=== PATIENT | male | born 1980 | race Caucasian/White ===

== ENCOUNTER 2022-08-15 19:32 | Emergency (ER) | payer OTHER, SELFPAY ==
--- NOTE | ~2022-08-15 | XR_ITS ---
X-RAY LEFT ANKLE X-RAY LEFT FOOT CLINICAL HISTORY: Fall. COMPARISON: No relevant prior studies are available for comparison. TECHNIQUE: 2 views of the left ankle and 3 views of the left foot. FINDINGS: No acute fractures or subluxation. No significant degenerative changes. No erosions. No abnormal soft tissue calcifications nor unexpected radiopaque foreign bodies. XR/XR ankle LT min 3V IMPRESSION: No acute fractures or subluxation.
--- NOTE | ~2022-08-15 | XR_ITS ---
X-RAY LEFT ANKLE X-RAY LEFT FOOT CLINICAL HISTORY: Fall. COMPARISON: No relevant prior studies are available for comparison. TECHNIQUE: 2 views of the left ankle and 3 views of the left foot. FINDINGS: No acute fractures or subluxation. No significant degenerative changes. No erosions. No abnormal soft tissue calcifications nor unexpected radiopaque foreign bodies. XR/XR foot LT min 3V IMPRESSION: No acute fractures or subluxation.
[2022-08-15 19:36] VITALS: BP 143/98; PULSE 128; RESP 18; TEMP 36.7; O2SAT 94; BMI 29.3
--- NOTE | 2022-08-15 19:37 | ED_ITS ---
HPI - General Adult General Chief complaint: General Medical Stated complaint: broken foot, depressed, chest pain Related Data Home Medications Medication Instructions Recorded Confirmed buprenorphine 300 mg/1.5 mL 300 mg subcut Q30D 08/17/22 08/17/22 solution,exten.rel.subcutaneous syringe (Sublocade) clonazepam 1 mg tablet 1 mg PO BID 08/17/22 08/17/22 escitalopram oxalate 10 mg tablet 10 mg PO DAILY 08/17/22 08/17/22 gabapentin 800 mg tablet 800 mg PO TID 08/17/22 08/17/22 Allergies Allergy/AdvReac Type Severity Reaction Status Date / Time sulfamethoxazole Allergy Unknown HIVES Verified 08/17/22 21:30 [From BACTRIM] trimethoprim [From BACTRIM] Allergy Unknown HIVES Verified 08/17/22 21:30 [facility] Social History Social History Smoked in Last 30 Days: No Use of substances other than those prescribed or required for medical reasons: No Substance Use Type: Marijuana Advance Directives: No Advance Directives Information Provided: No Physical Exam ED Vital Signs: BMI result Body Mass Index 29.3 Course Course Course Narrative: RME - 41 yo male with history of depression, anxiety, alcohol abuse/dependence who was sober for the last 3 years presents to the ER for evaluation of left foot and ankle pain after a fall 3 weeks ago. Rodrigo reports he relapsed, drinking heavy amounts of alcohol to do with the pain. Significant increase in the last 1 week. He has been reporting palpitations and ?issues with his heart?. He has not been eating and only drinking alcohol. No male beds a vailable when they tried to get him into a detox. They steady need to be medically cleared. Tachycardic to the 130s and triage, intoxicated. Plan x-ray of the left foot and ankle, EKG, lab workup for medical clearance. Reevaluation(s) Reevaluation #1: patient eloped prior to full assessment Medical Decision Making Lab Data 08/15/22 20:00 08/15/22 20:00 Labs: Lab Results 08/15/22 08/15/22 08/15/22 Range/Units 19:55 20:00 20:00 WBC 14.0 H (4.8-10.8) X10*3/uL RBC 5.33 (4.60-5.80) X10*6/uL Hgb 15.6 (14.0-18.0) g/dl Hct 45.4 (42.0-52.0) % MCV 85.2 (80.0-98.0) fL MCH 29.3 (27.0-33.0) pg MCHC 34.4 (31.0-36.0) g/dl RDW 14.2 (11.0-16.0) % Plt Count 143 L (160-400) X10*3/uL MPV 9.8 (9.4-12.4) fL Immature Gran % (Auto) 0.4 (0.0-0.4) % Neut % (Auto) 91.6 H (45-73) % Lymph % (Auto) 4.9 L (20-40) % [place] % (Auto) 3.0 (2-11) % Eos % (Auto) 0.0 (0-4) % Baso % (Auto) 0.1 (0-2) % Lymph # (Auto) 0.7 L (1.2-4.9) X10*3/uL [place] # (Auto) 0.4 (0.1-1.2) X10*3/uL Eos # (Auto) 0.0 (0.0-0.4) X10*3/uL Baso # (Auto) 0.0 (0.0-0.2) X10*3/uL Abs Immat Gran (auto) 0.05 H (0.00-0.03) X10*3/uL Absolute Neuts (auto) 12.8 H (2.0-8.3) x10*3/uL Absolute Nucleated RBC 0.000 (0.0-0.012) X10*3/uL Nucleated RBC % (auto) 0.0 (0.0-0.2) /100WBC Sodium 140 (135-145) mmol/L Potassium 4.0 (3.3-5.1) mmol/L Chloride 98 (96-108) mmol/L Carbon Dioxide 26 (22-29) mmol/L Anion Gap 20 (12-20) BUN 7 L (9-16) mg/dL Creatinine 0.81 (0.5-1.4) mg/dL Estim Creat Clear Calc 124.9 Estimated GFR > 60 Random Glucose 198 H (60-115) mg/dL Calcium 8.1 L (8.4-10.2) mg/dL Magnesium 2.2 (1.6-2.6) mg/dL Total Bilirubin 0.9 (0.0-1.0) mg/dL Direct Bilirubin 0.3 (0.0-0.5) mg/dL AST 143 H (5-37) U/L ALT 62 H (0-40) U/L Alkaline Phosphatase 111 (39-117) U/L Total Protein 6.9 (6.5-8.0) g/dL Albumin 3.8 (3.5-5.0) g/dL Ethyl Alcohol mg/dL COVID-19 (ROSSI) Negative (Negative) COVID-19 Clin Com See Note 08/15/22 Range/Units 20:00 WBC (4.8-10.8) X10*3/uL RBC (4.60-5.80) X10*6/uL Hgb (14.0-18.0) g/dl Hct (42.0-52.0) % MCV (80.0-98.0) fL MCH (27.0-33.0) pg MCHC (31.0-36.0) g/dl RDW (11.0-16.0) % Plt Count (160-400) X10*3/uL MPV (9.4-12.4) fL Immature Gran % (Auto) (0.0-0.4) % Neut % (Auto) (45-73) % Lymph % (Auto) (20-40) % Cors[place] % (Auto) (2-11) % Eos % (Auto) (0-4) % Baso % (Auto) (0-2) % Lymph # (Auto) (1.2-4.9) X10*3/uL [place] # (Auto) (0.1-1.2) X10*3/uL Eos # (Auto) (0.0-0.4) X10*3/uL Baso # (Auto) (0.0-0.2) X10*3/uL Abs Immat Gran (auto) (0.00-0.03) X10*3/uL Absolute Neuts (auto) (2.0-8.3) x10*3/uL Absolute Nucleated RBC (0.0-0.012) X10*3/uL Nucleated RBC % (auto) (0.0-0.2) /100WBC Sodium (135-145) mmol/L Potassium (3.3-5.1) mmol/L Chloride (96-108) mmol/L Carbon Dioxide (22-29) mmol/L Anion Gap (12-20) BUN (9-16) mg/dL Creatinine (0.5-1.4) mg/dL Estim Creat Clear Calc Estimated GFR Random Glucose (60-115) mg/dL Calcium (8.4-10.2) mg/dL Magnesium (1.6-2.6) mg/dL Total Bilirubin (0.0-1.0) mg/dL Direct Bilirubin (0.0-0.5) mg/dL AST (5-37) U/L ALT (0-40) U/L Alkaline Phosphatase (39-117) U/L Total Protein (6.5-8.0) g/dL Albumin (3.5-5.0) g/dL Ethyl Alcohol 462 H* mg/dL COVID-19 (ROSSI) (Negative) COVID-19 Clin Com Discharge Plan Discharge Clinical Impression: ETOH abuse Patient Disposition: Elopement Prescriptions: No Action clonazepam 1 mg Tablet 1 mg PO BID gabapentin 800 mg Tablet 800 mg PO TID escitalopram oxalate 10 mg Tablet 10 mg PO DAILY Sublocade 300 mg/1.5 mL Solution, Extended Rel Syringe 300 mg SUBCUT Q30D Interventions: LWBS Worksheet Last Done: 08/15/22 22:09 Discharge Date/Time: 08/15/22 22:27
[2022-08-15 20:06] LABS: MANUAL DIFF FLAG NO
[2022-08-15 20:08] LABS: Basophils Percent Auto 0.1 % (0-2); Hematocrit 45.4 % (42.0-52.0); Hemoglobin 15.6 g/dl (14.0-18.0); Imm Gran Abs Auto 0.05 X10*3/uL (0.00-0.03); Imm Gran Pct Auto 0.4 % (0.0-0.4); Lymphocytes Absolute Auto 0.7 X10*3/uL (1.2-4.9); Lymphocytes Percent Auto 4.9 % (20-40); Mean Corpuscular HGB Conc 34.4 g/dl (31.0-36.0); Mean Corpuscular Hemoglobin 29.3 pg (27.0-33.0); Mean Corpuscular Volume 85.2 fL (80.0-98.0); Mean Platelet Volume 9.8 fL (9.4-12.4); Monocytes Absolute Auto 0.4 X10*3/uL (0.1-1.2); Neutrophils Absolute Auto 12.8 x10*3/uL (2.0-8.3); Neutrophils Percent Auto 91.6 % (45-73); Platelet Count 143 X10*3/uL (160-400); Red Blood Count 5.33 X10*6/uL (4.60-5.80); Red Cell Distribution Width 14.2 % (11.0-16.0); SCAN SMEAR FLAG 1
[2022-08-15 20:24] LABS: Ethanol 462 mg/dL
[2022-08-15 20:25] LABS: Alanine Aminotransferase 62 U/L (0-40); Albumin Level 3.8 g/dL (3.5-5.0); Alkaline Phosphatase 111 U/L (39-117); Anion Gap 20 (12-20); Aspartate Amino Transferase 143 U/L (5-37); Bilirubin Direct 0.3 mg/dL (0.0-0.5); Bilirubin Total 0.9 mg/dL (0.0-1.0); Blood Urea Nitrogen 7 mg/dL (9-16); Calcium 8.1 mg/dL (8.4-10.2); Carbon Dioxide 26 mmol/L (22-29); Chloride 98 mmol/L (96-108); Creatinine Clr Calc Pharmacy 124.9; Estimated Glomerular Filt Rate > 60; Glucose Random 198 mg/dL (60-115); Magnesium 2.2 mg/dL (1.6-2.6); Sodium 140 mmol/L (135-145); Total Protein 6.9 g/dL (6.5-8.0)
[2022-08-15 20:33] LABS: COVID-19 Test Negative (Negative); IDNOW Serial# BCCEAD1C
== END 2022-08-15 22:27 | disposition left against medical advice (07) ==
LOC: HO.ED 22:26
PROVIDERS: Physician Assistant; Emergency Provider Emergency Medicine; PCP Family Medicine
DX: F10.10 Alcohol abuse, uncomplicated (principal); Y90.8 Blood alcohol level of 240 mg/100 ml or more; Z20.822 Contact with and (suspected) exposure to COVID-19; Z79.899 Other long term (current) drug therapy
CPT/HCPCS: 36415; 73610; 73630; 80048; 80076; 80307; 83735; 85025; 87635; 99281; 99283

== ENCOUNTER 2022-08-17 18:13 | Emergency (ER) | payer OTHER, SELFPAY ==
[2022-08-17 18:23] VITALS: BP 140/96; BP 150/90; PULSE 115; PULSE 120; RESP 16; O2SAT 95; BMI 33.2
[2022-08-17 18:29] VITALS: PULSE 127
--- NOTE | 2022-08-17 18:46 | ECG_ITS ---
Test Reason : ETOH Blood Pressure : / mmHG Vent. Rate : 113 BPM Atrial Rate : 113 BPM P-R Int : 146 ms QRS Dur : 094 ms QT Int : 322 ms P-R-T Axes : 070 -02 023 degrees QTc Int : 441 ms Sinus tachycardia Otherwise normal ECG When compared with ECG of 08-JAN-2019 13:54, No significant change was found Referred By: Marco Graf Electronically Signed By:KATIE MENG MD
[2022-08-17] MEDS: Thiamine HCL 100 MG TABLET PO (19:06)
[2022-08-17] MEDS: Magnesium Oxide 400 MG TABLET 800 MG PO (19:06)
[2022-08-17] MEDS: Multivitamin TABLET 1 TAB PO (19:06)
[2022-08-17] MEDS: Folic Acid 1 MG TABLET PO (19:06)
--- NOTE | 2022-08-17 19:13 | ED.ALCOHOL ---
HPI - Alcohol General Chief Complaint: ETOH/Substance Use Stated Complaint: ETOH Time Seen by Provider: 08/17/22 18:26 Source: patient and EMS Mode of arrival: EMS Limitations: no limitations History of Present Illness HPI narrative: 41-year-old male with history of alcohol abuse presents with acute alcohol intoxication. Patient reports having been sober for 3 years. His last detox 3 and half years ago. He suffered some sort of foot pain and since has been drinking due to not receiving appropriate pain medications. He denies suicidal or homicidal ideation. He is unable to answer when his last drink was. He reports that he feels he is withdrawing from alcohol at this time. Patient denies any suicidal or homicidal ideation. Symptoms appear to be worsened with alcohol ingestion. There are no clear relieving features. Patient is currently requesting detox. Patient reports drinking ?15 ?drinks per day Related Data Home Medications Medication Instructions Recorded Confirmed buprenorphine 300 mg/1.5 mL 300 mg subcut Q30D 08/17/22 08/17/22 solution,exten.rel.subcutaneous syringe (Sublocade) clonazepam 1 mg tablet 1 mg PO BID 08/17/22 08/17/22 escitalopram oxalate 10 mg tablet 10 mg PO DAILY 08/17/22 08/17/22 gabapentin 800 mg tablet 800 mg PO TID 08/17/22 08/17/22 Allergies Allergy/AdvReac Type Severity Reaction Status Date / Time sulfamethoxazole Allergy Unknown HIVES Verified 08/17/22 21:30 [From BACTRIM] trimethoprim [From BACTRIM] Allergy Unknown HIVES Verified 08/17/22 21:30 Review of Systems Review of Systems: CONSTITUTIONAL: Denies weight loss, fever and chills. HEENT: Denies changes in vision and hearing. RESPIRATORY: Denies SOB and cough. CV: Denies palpitations no CP. GI: Denies abdominal pain, nausea, vomiting and diarrhea. : Denies dysuria and urinary frequency. MSK: Denies myalgia and joint pain. SKIN: Denies rash and pruritus. NEUROLOGICAL: Denies headache and syncope. PSYCHIATRIC: Denies recent changes in mood. Positive anxiety and depression. All other ROS are negative unless in HPI PMFSH Social History Social History Smoked in Last 30 Days: No Use of substances other than those prescribed or required for medical reasons: No Substance Use Type: Marijuana Advance Directives: No Advance Directives Information Provided: No Physical Exam ED Vital Signs: Vital Signs - 24 hr 08/17/22 18:23 Pulse Rate 115 H Respiratory Rate 16 Blood Pressure 140/96 H Pulse Oximetry 95 Oxygen Delivery Method Room Air BMI result Body Mass Index 33.2 GEN: Well developed, no acute distress, alert, oriented, slurred speech HEENT: Normocephalic, atraumatic, normal external ears, nose appears normal, no oropharyngeal edema or exudates Eyes: Normal to appearance Neck: Supple, no lymphadenopathy Respiratory: Talks in complete sentences, no respiratory distress, clear to auscultation bilaterally Cardiovascular: Regular rate and rhythm, no murmurs rubs or gallops, tachycardic Abdomen: Soft, nontender, nondistended, no guarding, no rebound Back: No CVA tenderness Extremities: No clubbing cyanosis or edema Neurologic: No focal neurologic deficits, cranial nerves 2-12 intact, strength is 5/5 bilaterally Skin: No rash Course Course Course Narrative: Patient presents with symptoms concerning for acute alcohol withdrawal. Patient is unclear when his last alcohol ingestion was. However, patient has slurred speech more suggestive of acute alcohol intoxication. Exam reveals tachycardia. Is not suicidal homicidal. Is requesting detox. Will provide patient with vitamins, IV fluids, re-evaluate pending laboratory results. Reevaluation(s) Reevaluation #1: Patient is significantly and acutely intoxicated with alcohol. He will receive a total 2 mg of Klonopin. Possibility that he may be withdrawing from clonazepam. Time: 20:09 Reevaluation #2: Patient has been informed of his lab results. He acts out quite frequently requiring a significant amount of attention. His agitation level is increasing despite a significantly elevated alcohol level and already being replaced with his typical clonazepam which is 2 mg twice daily. If need be, patient has requested medication to help home rest. Will consider Haldol for additional medications. Time: 20:31 Reevaluation #3: Patient is awaiting sobriety. Patient will be admitted to [facility]. Patient's disposition is pending re-evaluation, sobriety, possible detox referral. Time: 21:53 Medical Decision Making Medical Decision Making MDM Narrative: 41-year-old male with history of alcohol abuse presents with either alcohol withdrawal or acute alcohol intoxication. Patient denies suicidal homicidal ideation. No focal neurologic deficits. Does have slurred speech and tachycardia. In the course of his workup, patient receive IV fluids, multivitamin, thiamine, folic acid magnesium. Patient received clonazepam for anxiety. Will provide patient with an IV fluid bolus once he obtains intravenous access. Patient reports being interested in detox. I will await alcohol level determine he is actually in acute alcohol withdrawal or intoxicated. Differential Diagnosis Differential Diagnoses: The differential diagnosis associated with the presentation includes (Alcohol intoxication, alcohol withdrawal, depression, anxiety, stress reaction, PTSD her mood disorder) Alcohol abuse Admission/Observation Consideration of admission/observation: Escalation of care including admission/observation considered (If in acute alcohol withdrawal) Lab Data MDM Lab Attestation statement: I reviewed the patient's lab results. 08/17/22 19:34 08/17/22 19:34 Labs: Lab Results 08/17/22 08/17/22 08/17/22 Range/Units 19:34 19:34 19:34 WBC 10.3 (4.8-10.8) X10*3/uL RBC 4.96 (4.60-5.80) X10*6/uL Hgb 14.6 (14.0-18.0) g/dl Hct 41.6 L (42.0-52.0) % MCV 83.9 (80.0-98.0) fL MCH 29.4 (27.0-33.0) pg MCHC 35.1 (31.0-36.0) g/dl RDW 14.5 (11.0-16.0) % Plt Count 149 L (160-400) X10*3/uL MPV 9.3 L (9.4-12.4) fL Immature Gran % (Auto) 0.9 H (0.0-0.4) % Neut % (Auto) 84.5 H (45-73) % Lymph % (Auto) 8.6 L (20-40) % Mitchell % (Auto) 5.9 (2-11) % Eos % (Auto) 0.0 (0-4) % Baso % (Auto) 0.1 (0-2) % Lymph # (Auto) 0.9 L (1.2-4.9) X10*3/uL Mitchell # (Auto) 0.6 (0.1-1.2) X10*3/uL Eos # (Auto) 0.0 (0.0-0.4) X10*3/uL Baso # (Auto) 0.0 (0.0-0.2) X10*3/uL Abs Immat Gran (auto) 0.09 H (0.00-0.03) X10*3/uL Absolute Neuts (auto) 8.7 H (2.0-8.3) x10*3/uL Absolute Nucleated RBC 0.020 H (0.0-0.012) X10*3/uL Nucleated RBC % (auto) 0.2 (0.0-0.2) /100WBC Sodium 145 (135-145) mmol/L Potassium 3.6 (3.3-5.1) mmol/L Chloride 100 (96-108) mmol/L Carbon Dioxide 31 H (22-29) mmol/L Anion Gap 18 (12-20) BUN 4 L (9-16) mg/dL Creatinine 0.76 (0.5-1.4) mg/dL Estim Creat Clear Calc 146.0 Estimated GFR > 60 Random Glucose 143 H (60-115) mg/dL Calcium 8.4 (8.4-10.2) mg/dL Total Bilirubin 1.0 (0.0-1.0) mg/dL AST 145 H (5-37) U/L ALT 63 H (0-40) U/L Alkaline Phosphatase 94 (39-117) U/L Total Protein 6.6 (6.5-8.0) g/dL Albumin 3.8 (3.5-5.0) g/dL Ethyl Alcohol 427 H* mg/dL COVID-19 (ROSSI) Negative (Negative) COVID-19 Clin Com See Note Independent Interpretation I performed an independent interpretation of an: EKG (Sinus tachycardia heart rate 113, QTC 441 milliseconds, no acute ST elevations depressions, nonspecific T-wave changes.) Independent Historian Clinical information obtained from an independent historian. History obtained from or confirmed by: EMS Prescription Management I considered prescription management with: Other (Benzodiazepines) Chronic Conditions Patient?s care impacted by: Other (Alcohol abuse) Medications Administered Discontinued Medications Generic Name Dose Route Start Last Admin Trade Name Freq PRN Reason Stop Dose Admin Clonazepam 1 mg 08/17/22 19:09 08/17/22 19:24 Clonazepam 1 Mg Tablet PO 08/17/22 19:10 1 mg ONCE ONE Administration Clonazepam 1 mg 08/17/22 19:55 08/17/22 20:03 Clonazepam 1 Mg Tablet PO 08/17/22 19:56 1 mg ONCE ONE Administration Folic Acid 1 mg 08/17/22 18:46 08/17/22 19:06 Folic Acid 1 Mg Tablet PO 08/17/22 18:47 1 mg ONCE ONE Administration Sodium Chloride 1,000 mls @ 999 mls/hr 08/17/22 19:00 08/17/22 19:56 Ns IV 08/17/22 20:00 999 mls/hr .Q1H1M MARILYNN Infusion Magnesium Oxide 800 mg 08/17/22 18:46 08/17/22 19:06 Magnesium Oxide 400 Mg Tablet PO 08/17/22 18:47 800 mg ONCE ONE Administration Multivitamins/Vitamin C 1 tab 08/17/22 18:46 08/17/22 19:06 Multivitamin Tablet PO 08/17/22 18:47 1 tab ONCE ONE Administration Thiamine HCl 100 mg 08/17/22 18:46 08/17/22 19:06 Thiamine Hcl 100 Mg Tablet PO 08/17/22 18:47 100 mg ONCE ONE Administration Discharge Plan Discharge Clinical Impression: Alcohol abuse Patient Disposition: Still a Patient Prescriptions: No Action clonazepam 1 mg Tablet 1 mg PO BID gabapentin 800 mg Tablet 800 mg PO TID escitalopram oxalate 10 mg Tablet 10 mg PO DAILY Sublocade 300 mg/1.5 mL Solution, Extended Rel Syringe 300 mg SUBCUT Q30D
[2022-08-17] MEDS: clonazePAM 1 MG TABLET PO ×2 (19:24→20:03)
[2022-08-17] MEDS: 0.9 % Sodium Chloride 1,000 ML 999 ML IV (19:35)
[2022-08-17 19:42] LABS: MANUAL DIFF FLAG NO
[2022-08-17 19:43] LABS: Basophils Percent Auto 0.1 % (0-2); Hematocrit 41.6 % (42.0-52.0); Hemoglobin 14.6 g/dl (14.0-18.0); Imm Gran Abs Auto 0.09 X10*3/uL (0.00-0.03); Imm Gran Pct Auto 0.9 % (0.0-0.4); Lymphocytes Absolute Auto 0.9 X10*3/uL (1.2-4.9); Lymphocytes Percent Auto 8.6 % (20-40); Mean Corpuscular HGB Conc 35.1 g/dl (31.0-36.0); Mean Corpuscular Hemoglobin 29.4 pg (27.0-33.0); Mean Corpuscular Volume 83.9 fL (80.0-98.0); Mean Platelet Volume 9.3 fL (9.4-12.4); Monocytes Absolute Auto 0.6 X10*3/uL (0.1-1.2); Monocytes Percent Auto 5.9 % (2-11); NRBC Pct Auto 0.2 /100WBC (0.0-0.2); Neutrophils Absolute Auto 8.7 x10*3/uL (2.0-8.3); Neutrophils Percent Auto 84.5 % (45-73); Platelet Count 149 X10*3/uL (160-400); Red Blood Count 4.96 X10*6/uL (4.60-5.80); Red Cell Distribution Width 14.5 % (11.0-16.0); White Blood Count 10.3 X10*3/uL (4.8-10.8)
--- NOTE | 2022-08-17 19:47 | PC.NURSE ---
assumed care of pt restless, redirected to stay in bed pt states he is withdrawng and that he is on a high dose of benzodiazepines MD aware pt tachycardic 112
[2022-08-17 19:57] LABS: COVID-19 Test Negative (Negative); IDNOW Serial# 6674DD1D
--- NOTE | 2022-08-17 19:58 | PC.NURSE ---
pt closed curtain and pulled IV out cleaned and dried MD aware to talk with pt about his restlessness
[2022-08-17 20:03] LABS: Alanine Aminotransferase 63 U/L (0-40); Albumin Level 3.8 g/dL (3.5-5.0); Alkaline Phosphatase 94 U/L (39-117); Anion Gap 18 (12-20); Aspartate Amino Transferase 145 U/L (5-37); Blood Urea Nitrogen 4 mg/dL (9-16); Calcium 8.4 mg/dL (8.4-10.2); Carbon Dioxide 31 mmol/L (22-29); Chloride 100 mmol/L (96-108); Estimated Glomerular Filt Rate > 60; Ethanol 427 mg/dL; Glucose Random 143 mg/dL (60-115); Potassium 3.6 mmol/L (3.3-5.1); Sodium 145 mmol/L (135-145); Total Protein 6.6 g/dL (6.5-8.0)
--- NOTE | 2022-08-17 20:25 | PHA.MEDREC ---
Pharmacy Consult ? Medication Reconciliation Patient not able to confirm medication at this time. Per pharmacy claim history and [facility] recent medications history was obtain. Pharmacy team will follow up on Suboxone film and if there's any additional medications once patient is able to communicate. Pharmacy has completed the medication reconciliation.
--- NOTE | 2022-08-17 21:06 | MHC.RECOVSUP ---
? Reason for consult:ETOH o? Current location:[id number]? o? Identified substance use concern:? -? Support ? Intervention: o? Community resources provided ? Plan: o? Follow up tomorrow? ? Additional information:[facility] met this pt and discussed treatment, pt declined going to treatment, [facility] provided this pt with resources, and business card. PT stated he's had a [facility] in the past and would like to work with a [facility], Pt is going to call [facility] upon discharge to complete referral.
--- NOTE | 2022-08-17 21:33 | PC.NURSE ---
per provider do not replace IV at this time pt sleeping, no apparent distress respirations even and unlabored
--- NOTE | 2022-08-17 22:40 | PC.NURSE ---
pt reminded about his use of profanity not being tolerated removed leads refused vitals
[2022-08-17 23:02] LABS: Appearance Urine Clear; Color Urine Yellow; Glucose Urine UA Negative (Negative); Leukocyte Esterase Urine Negative (Negative); Nitrite Urine Negative (Negative); PH 8.5 (5.0-9.0); UMIC TRIGGER UACC YES; Urine Blood Negative (Negative); Urine Ketones Negative (Negative); Urine Protein 30 (1+) mg/dL (Neg-Trace)
[2022-08-17 23:08] LABS: Bacteria Urine None Seen (None Seen); Hyaline Casts Urine 0-2 /LPF (0-2); RBC Urine 0-2 /HPF (0-2); Squamous Epithelial Cell Urine 0-2 /HPF (0-2); WBC Urine 0-5 /HPF (0-5)
[2022-08-17 23:11] LABS: Amphetamine Screen Urine Not Detected (Not Detect); Barbiturates, Urine Not Detected (Not Detect); Benzodiazepines Screen Urine Not Detected (Not Detect); Cannabinoid Screen Urine POSITIVE (Not Detect); Cocaine Screen Urine Not Detected (Not Detect); Fentanyl, urine Not Detected (Not Detect); Opiate Screen Urine Not Detected (Not Detect); Phencyclidine Screen Urine Not Detected (Not Detect)
--- NOTE | 2022-08-17 23:59 | PC.NURSE ---
pt uncooperative refuses to stay in room MD aware
[2022-08-18] MEDS: LORazepam 1 MG TABLET 2 MG PO
--- NOTE | 2022-08-18 00:57 | PC.NURSE ---
pt left prior to receiving discharge paperwork w/ s/o who brought clothes in for him steady gait
--- NOTE | 2022-08-18 00:58 | PC.NURSE ---
no apparent distress noted prior to leaving w/o discharge instructions
== END 2022-08-18 00:55 | disposition home or self-care (01) ==
PROVIDERS: Emergency Provider Emergency Medicine
DX: F10.239 Alcohol dependence with withdrawal, unspecified (principal); Y90.8 Blood alcohol level of 240 mg/100 ml or more; R00.0 Tachycardia, unspecified; Z20.822 Contact with and (suspected) exposure to COVID-19; Z20.828 Contact with and (suspected) exposure to other viral communicable diseases; Z79.899 Other long term (current) drug therapy
CPT/HCPCS: 80053; 80307; 81001; 81003; 85025; 87635; 93005; 99285

== ENCOUNTER 2024-02-21 20:21 | Emergency (ER) | payer OTHER, SELFPAY ==
--- NOTE | ~2024-02-21 | XR_ITS ---
EXAMINATION: XR HAND/WRIST, RIGHT CLINICAL INFORMATION: FOOSH COMPARISON: None available. TECHNIQUE: Four views of the right hand and wrist. FINDINGS / XR/XR hand wrist RT IMPRESSION: There is a comminuted, mildly impacted fracture oriented transversely within the distal aspect of the radius. The radiocarpal joint appears maintained. No additional fracture is seen. There is soft tissue swelling. Electronically signed by: Jarret Berry DO 02/21/2024 09:00 PM LALITA MILLER
[2024-02-21 20:25] VITALS: BP 122/91; PULSE 125; RESP 18; TEMP 36.4; O2SAT 99; BMI 38.4
--- NOTE | 2024-02-21 20:27 | ED_ITS ---
HPI - Extremity Injury (Upper) General Chief Complaint: Extremity Injury, Upper Stated Complaint: ?Broken arm Time Seen by Provider: 02/21/24 20:50 Source: patient Mode of arrival: ambulatory Limitations: no limitations History of Present Illness ED Provider: Cleo Rizo NP HPI narrative: Patient is a 43-year-old male right-hand dominant presents emergency department for evaluation of right hand/wrist pain after a mechanical slip and fall 2 days ago. Reports that he attempted to catch himself with the right hand. He subsequently developed pain and bruising. He has tried applying ice to the area but continues to have pain. He denies any head strike or loss of consciousness with this fall. Denies numbness tingling or cold sensation to the hand. Denies prior injury to this hand/wrist. Related Data Home Medications ?Medication ?Instructions ?Recorded ?Confirmed buprenorphine 300 mg/1.5 mL 300 mg subcut Q30D 08/17/22 08/17/22 solution,exten.rel.subcutaneous syringe (Sublocade) clonazepam 1 mg tablet 1 mg PO BID 08/17/22 08/17/22 escitalopram oxalate 10 mg tablet 10 mg PO DAILY 08/17/22 08/17/22 gabapentin 800 mg tablet 800 mg PO TID 08/17/22 08/17/22 Previous Rx's ?Medication ?Instructions ?Recorded oxycodone 5 mg tablet 5 mg PO Q6H PRN pain #7 tabs 02/21/24 Allergies Allergy/AdvReac Type Severity Reaction Status Date / Time sulfamethoxazole Allergy Unknown HIVES Verified 02/21/24 20:26 [From BACTRIM] trimethoprim [From BACTRIM] Allergy Unknown HIVES Verified 02/21/24 20:26 seafood Allergy Anaphylaxis Verified 02/21/24 20:27 Review of Systems Review of Systems: Yes all other systems are reviewed and are negative PMFSH Social History Social History Smoked in Last 30 Days: Yes Substance Use Type: Marijuana Advance Directives: No Advance Directives Information Provided: No Do you have a plan to hurt others: No Plan Physical Exam Vital Signs: Vital Signs: Last Vital Signs Temp 98.0 F 02/21/24 22:52 Pulse 90 02/21/24 22:52 Resp 18 02/21/24 22:52 BP 116/80 12/05/24 22:52 Pulse Ox 97 02/21/24 22:52 O2 Del Method Room Air 02/21/24 22:52 BMI result Body Mass Index 38.4 Appearance: Alert.?Oriented to person, place and time. No acute distress.?Normal affect. CVS: Heart sounds normal. Normal heart rate and rhythm.? Pulses normal.?? Respiratory: No respiratory distress.? Lung sounds clear to auscultation bilaterally?? Abdomen: Soft and non-tender. Normoactive bowel sounds. Skin: Skin warm and dry.? Normal skin color.? Extremities: Localized swelling to the right wrist with ecchymosis over the dorsum of the wrist, over the metacarpals, base of the thumb as well as the volar forearm. 2+ radial pulse. Decreased AROM. Neuro: Moves all extremities spontaneously. Sensation intact bilaterally. Ambulates with normal steady gait. Course Course Course Narrative: This is a Rapid Medical Examination (RME) performed by Ivy Chin PA-C in triage. Full HPI, ROS, assessment and treatment plan per primary provider in the Main ED. 43 yo right hand dominant male hx of etoh abuse, anxiety presents to the ED today for evaluation of right hand/ wrist pain s/p FOOSH 2 days ago. states he fell forward while descending his stairs. caught himself with hit outstretched right hand. denies head strike or LOC. not on anticoagulation. + patient appears appears acutely intoxicated however denies any etoh or ilicit substance use. tachycardic. noted ecchymosis to ventral right wrist. limited ROM d/t pain. no obvious deformity. able to move all digits w/ pain. sensation intact. Plan: imaging Medical Decision Making Medical Decision Making MDM Narrative: Patient is a 43-year-old male right-hand dominant presents emergency department for evaluation after mechanical slip and fall on the stairs 2 days ago with subsequent pain to the right wrist/hand and bruising as per HPI. Denies associated head strike or loss of consciousness. Extremities neurovascularly intact distally. XR imaging reveals a comminuted impacted distal radius fracture. He was placed in a sugar-tong splint and remains neurovascularly intact distally after application, provided with a sling. Discussed conservative treatment in addition to pain management, sent for prescription for oxycodone for severe pain, outpatient follow-up with orthopedics. Reviewed worrisome signs and symptoms that would warrant re-evaluation in the emergency department. Stable for discharge, patient's spouse was present at the time of discharge and will be driving him home Differential Diagnosis Differential Diagnoses: The differential diagnosis associated with the presentation includes (Fracture, dislocation, sprain) Independent Interpretation I performed an independent interpretation of an: Plain X-Ray (Distal radius fracture) Radiology Impression Discussion of test interpretation with radiology: I have reviewed the radiologist's reading. Radiologist Impression: XR/XR hand wrist RT IMPRESSION: There is a comminuted, mildly impacted fracture oriented transversely within the distal aspect of the radius. The radiocarpal joint appears maintained. No additional fracture is seen. There is soft tissue swelling. Independent Historian Clinical information obtained from an independent historian. History obtained from or confirmed by: Spouse External Record Review External record reviewed: Outpatient record and Other I attest that I have reviewed patients [place], and at the time prescribing the patient a controlled substance is appropriate based off of patients diagnosis and treatment plan. Prescription Management I considered prescription management with: Pain Medication Procedures Orthopedic Splinting/Casting Injury #1: Side: right Upper Extremity Injury Location: forearm Upper Extremity Immobilizer: sling/shoulder immobilizer and sugar tong splint Discharge Plan Discharge Clinical Impression: Distal radius fracture, right Patient Disposition: Home, Self-Care Instructions: Wrist Fracture in Adults (ED) Additional Instructions: The splint must remain in place at all times it can not get wet if it does it will fall apart. Use the sling provided to help keep your arm in a position that is comfortable and prevent excessive strain on the shoulder. Apply ice for 10-15 minutes 3-4 times daily. You can take ibuprofen 200 mg, 3 tablets (600mg) every 6-8 hours as needed for pain, in addition to Tylenol 500 mg, 2 tablets (1,000mg) every 4-6 hours as needed for pain, but not to exceed 3 doses daily (3,000mg).? A short prescription for oxycodone has been sent to your pharmacy to use for severe pain uncontrolled by Tylenol/ibuprofen. Oxycodone is a narcotic medication. It may make you drowsy. You should not drive, drink alcohol, or work while taking this medication. Please contact the Orthopedics office in the morning to arrange for a follow-up appointment. You may return to emergency department any new or worsening symptoms or concerns. Prescriptions: New oxycodone 5 mg tablet 5 mg PO Q6H PRN (Reason: pain) Qty: 7 0RF Rx Instructions: Partial Fill upon patient request. No Action clonazepam 1 mg Tablet 1 mg PO BID gabapentin 800 mg Tablet 800 mg PO TID escitalopram oxalate 10 mg Tablet 10 mg PO DAILY Sublocade 300 mg/1.5 mL Solution, Extended Rel Syringe 300 mg SUBCUT Q30D Referrals: [facility] – [place] [facility] [Provider Group] Stand Alone Forms: Work/School Release Interventions: ED Discharge Assessment Last Done: 02/21/24 22:52 Discharge Date/Time: 02/21/24 22:52 Print Language: Swedish
[2024-02-21 22:12] VITALS: BP 116/80; PULSE 90; RESP 18; TEMP 36.7; O2SAT 97
[2024-02-21 22:52] VITALS: BP 116/80; PULSE 90; RESP 18; TEMP 36.7; O2SAT 97
--- OUTSIDE RECORDS SUMMARY | 2024-02-27 04:29 | XMS_ITS ---
Author Organization [facility] Address [address] [place] [address] Phone Care Team Providers Care Senior Product Manager Name Role Phone Spivey Andi IVERSON Primary Care Provider [phone] [facility] [phone] Plan of Treatment Future Appointments Date Time Location Provi shara Procedure 03/03/2024 10:00AM [facility] Kenia Man MD Last Documented On 4 2:07PM ; [facility] Assessments Includes: Assessments for all patient encounters No Assessments Recorded Medical Equipment - Implanted Devices Includes: Current and historical Devices No Medical Equipment Recorded Medications Administered Includes: Administered Medications in patient's chart No Administered Medications Recorded Results Includes: Results from 02/26/2023 through 02/27/2024 No Results Recorded For Specified Dates History of Present Illness History of Present Illness not supported for this document type No History of Present Illness Recorded Social History No Social History Recorded - Smoking Status Unknown Procedures and Surgical History Includes: Procedures from 02/26/2023 through 02/27/2024 Procedures Code Diagnosis Performing Provider Service Location Service Date Treat Fracture Radius/Ulna (Right) 00766 Unsp fracture of the lower end of right radius, init Precious Giles PA-C [facility] - Inpatient 02/15/2024 Last Documented On 4 7:21AM ; [facility] Medical History Includes: Medical History in patient's chart No Medical History Recorded Family History Includes: Family History in patient's chart No Family History Recorded Review of Systems Review of Systems not supported for this document type No Review of Systems Recorded Mental Status No Mental Status Recorded Functional Status No Functional Status Recorded Physical Exam Physical Exam not supported for this document type No Physical Exam Recorded Insurance Includes: Active Insurance Policies Plan Name Member ID Group # Subscriber Relationship Effect hossein Dates 1 - [facility] [id number] Stiven Cook [employer] Clinical Notes Includes: Signed Clinical Notes starting from 02/26/2022 No Clinical Notes Recorded
--- OUTSIDE RECORDS SUMMARY | 2024-02-27 04:29 | XMS_ITS ---
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
--- OUTSIDE RECORDS SUMMARY | 2024-02-27 04:30 | XMS_ITS ---
Author Organization [facility] Address [address] [place] [address] Phone Care Team Providers Care Stoneworking Belt Sander Name Role Phone Spivey Andi IVERSON Primary Care Provider [phone] [facility] Un[facility] [phone] Plan of Treatment Future Appointments Date Time Location Provi shara Procedure 03/03/2024 10:00AM [facility] Kenia Man MD Last Documented On 4 2:07PM ; [facility] Assessments Includes: Assessments for all patient encounters [...] Location Service Date Treat Fracture Radius/Ulna (Right) 90110 Unsp fracture of the lower end of right radius, init Precious Giles PA-C [facility] - Inpatient 02/15/2024 Last Documented On 4 7:21AM ; [facility] Medical History Includes: Medical History in patient's [...] Subscriber Relationship Effect hossein Dates 1 - [facility] [id number] [employer] Clinical Notes Includes: Signed Clinical Notes starting from 02/26/2022 No Clinical Notes Recorded
--- OUTSIDE RECORDS SUMMARY | 2024-02-27 04:30 | XMS_ITS ---
Care Plan - [place] [facility] Created on: February 27, 2024 Stiven Cook : 1980 Sex: Male Author Organization [place] [facility] Address [address] [place] [address] Phone Care Team Providers Care Sanitarian Aide Name Role Phone Andi Spivey DO Primary Care Provider [phone] [place] [facility], Unavailable [phone]
== END 2024-02-21 22:52 | disposition home or self-care (01) ==
PROVIDERS: Emergency Provider Emergency Medicine
DX: S52.501A Unspecified fracture of the lower end of right radius, initial encounter for closed fracture (principal); M79.641 Pain in right hand; F10.129 Alcohol abuse with intoxication, unspecified; Y90.9 Presence of alcohol in blood, level not specified; R00.0 Tachycardia, unspecified; W10.8XXA Fall (on) (from) other stairs and steps, initial encounter; Y93.89 Activity, other specified; Y92.89 Other specified places as the place of occurrence of the external cause; Y99.8 Other external cause status; Z79.899 Other long term (current) drug therapy
CPT/HCPCS: 29125; 73110; 73130; 99284

== ENCOUNTER 2024-02-25 19:19 | Emergency (ER) | payer OTHER, SELFPAY ==
--- NOTE | ~2024-02-25 | XR_ITS ---
EXAMINATION: XR HAND/WRIST, RIGHT CLINICAL INFORMATION: Known distal radius fracture. Fell again today COMPARISON: Wrist x-ray on 02/21/2024 TECHNIQUE: PA, lateral, and oblique views of the right hand and wrist. FINDINGS: Casting material limits evaluation. Redemonstration of the distal radial fracture which is in improved alignment compared to the prior exam. No definite new fractures. XR/XR hand wrist RT IMPRESSION: No new fractures. Electronically signed by: Sepideh Simms MD 02/25/2024 09:39 PM LALITA MILLER
[2024-02-25 19:45] VITALS: BP 132/85; PULSE 110; RESP 20; TEMP 36.8; O2SAT 98; BMI 39.5
--- NOTE | 2024-02-25 19:47 | ED_ITS ---
HPI - General Adult General Chief complaint: Extremity Injury, Upper Stated complaint: R arm re-injury today around 1100 Time Seen by Provider: 02/25/24 22:27 Source: patient Mode of arrival: ambulatory History of Present Illness ED Provider: Cleo Rizo NP HPI narrative: Patient is a 43-year-old male presents emergency department for evaluation. He was seen in this emergency department 4 days ago by myself and found to have a left distal radius fracture for which he was placed in a sugar-tong splint as well as a sling. He reports today he was going out to the mailbox when he slipped and fell on ice landing on his left side. Denies any head strike or loss of consciousness. Reports persistent pain to the left wrist. Able to move the digits. Denies numbness tingling or cold sensation to the hand. Reports that he has initial appointment Orthopedics scheduled for 02/27/2024 Related Data Home Medications ?Medication ?Instructions ?Recorded ?Confirmed buprenorphine 300 mg/1.5 mL 300 mg subcut Q30D 08/17/22 08/17/22 solution,exten.rel.subcutaneous syringe (Sublocade) clonazepam 1 mg tablet 1 mg PO BID 08/17/22 08/17/22 escitalopram oxalate 10 mg tablet 10 mg PO DAILY 08/17/22 08/17/22 gabapentin 800 mg tablet 800 mg PO TID 08/17/22 08/17/22 Previous Rx's ?Medication ?Instructions ?Recorded oxycodone 5 mg tablet 5 mg PO Q6H PRN pain #7 tabs 02/21/24 Allergies Allergy/AdvReac Type Severity Reaction Status Date / Time sulfamethoxazole Allergy Unknown HIVES Verified 02/25/24 19:47 [From BACTRIM] trimethoprim [From BACTRIM] Allergy Unknown HIVES Verified 02/25/24 19:47 seafood Allergy Anaphylaxis Verified 02/25/24 19:47 Review of Systems Review of Systems: Yes all other systems are reviewed and are negative PMFSH Past Medical History Attestation statement: The following information was validated with the patient. Source: old records reviewed Social History Social History Substance Use Type: Marijuana Advance Directives: No Advance Directives Information Provided: No Do you have a plan to hurt others: No Plan Physical Exam ED Vital Signs: Vital Signs - 24 hr 02/25/24 19:45 02/25/24 23:32 Temperature 98.3 F 98.0 F Pulse Rate 110 H 99 Respiratory Rate 20 18 Blood Pressure 132/85 128/76 Pulse Oximetry 98 97 Oxygen Delivery Method Room Air Room Air BMI result Body Mass Index 39.5 Appearance: Alert.?Oriented to person, place and time. No acute distress.?Normal affect.? CVS: Heart sounds normal. Normal heart rate and rhythm.? Pulses normal.?? Respiratory: No respiratory distress.? Lung sounds clear to auscultation bilaterally?? Abdomen: Soft and non-tender. Normoactive bowel sounds. Skin: Skin warm and dry.? Normal skin color.? Extremities: Noextremity edema.? CMS intact to the digits of the left hand. The sugar-tong splint appears slightly displaced, the edges of the splint noted to be just over the wrist Neuro: Moves all extremities spontaneously. Sensation intact bilaterally. Ambulates with normal steady gait. Course Course Course Narrative: 43-year-old male presents to ED for right arm pain. Patient has no distal radial fracture diagnosed 4 days ago but fell again today onto the same arm came to ED to be evaluated. Vascular neuro exam of right upper extremity intact. Motor exam limited due to pain. Patient has splint. Repeat x-ray ordered. Patient will be evaluated in [facility]. Presently negative signs for compartment syndrome. Medications Administered Discontinued Medications Generic Name Dose Route Start Last Admin Trade Name Freq PRN Reason Stop Dose Admin Acetaminophen 975 mg 02/25/24 19:44 02/25/24 19:52 Acetaminophen 325 Mg Tablet PO 02/25/24 19:45 975 mg ONCE ONE Administration Medical Decision Making Medical Decision Making [facility] Narrative: Patient is a 43-year-old male presents emergency department for evaluation of re-injury of the left arm with a mechanical slip and fall today with a history of known distal radius fracture. On my evaluation the sugar-tong splint previously placed appears to be malpositioned. When asked he denies having removed the splint. I did remove the Ancelmo wraps for further assessment, the cut out for the thumb were noted to be along the forearm at this time he does admit that he did take it off? because it was bothering him?. The splint was replaced appropriately with edges of the splint just below the MCP. Remained neurovascularly intact distally after application. Date of initial injury was 02/19/2024. At the time of my evaluation today he appears somewhat drowsy, intermittently falling asleep. Denies any recreational drug or alcohol usage. Even denies any history of usage however I do see that he is prescribed Sublocade. He is requesting additional narcotics at this time, expressed my co ncern about continued use of narcotics after this extent from initial injury. I have advised conservative measures at this time until evaluated by orthopedics. Splint is replaced appropriately this should help alleviate some degree of pain as well. Repeat XR today is without acute changes. Discussed worrisome signs and symptoms that would warrant re-evaluation Differential Diagnosis Differential Diagnoses: The differential diagnosis associated with the presentation includes (Fracture, dislocation, contusion) Independent Interpretation I performed an independent interpretation of an: Plain X-Ray (No acute changes to distal radius fracture) Radiology Impression Discussion of test interpretation with radiology: I have reviewed the radiologist's reading. Radiologist Impression: XR/XR hand wrist RT IMPRESSION: No new fractures. Independent Historian Clinical information obtained from an independent historian. History obtained from or confirmed by: Spouse External Record Review External record reviewed: Outpatient record Prescription Management I considered prescription management with: Pain Medication (See narrative above) Discharge Plan Discharge Clinical Impression: Distal radius fracture, left Patient Disposition: Home, Self-Care Additional Instructions: Follow-up with orthopedics as scheduled. Elevate your arm above the level of your chest when you can. Leave the splint on at all times until evaluated by orthopedics. Prescriptions: No Action oxycodone 5 mg tablet 5 mg PO Q6H PRN (Reason: pain) Qty: 7 0RF Rx Instructions: Partial Fill upon patient request. clonazepam 1 mg Tablet 1 mg PO BID gabapentin 800 mg Tablet 800 mg PO TID escitalopram oxalate 10 mg Tablet 10 mg PO DAILY Sublocade 300 mg/1.5 mL Solution, Extended Rel Syringe 300 mg SUBCUT Q30D Referrals: Physician,None [Primary Care Provider] - Interventions: ED Discharge Assessment Last Done: 02/25/24 23:32 Discharge Date/Time: 02/25/24 23:34 Print Language: Taiwanese
[2024-02-25] MEDS: Acetaminophen 325 MG TABLET 975 MG PO (19:52)
[2024-02-25 23:32] VITALS: BP 128/76; PULSE 99; RESP 18; TEMP 36.7; O2SAT 97
--- OUTSIDE RECORDS SUMMARY | 2024-02-27 18:10 | XMS_ITS ---
Care Plan - [place] [facility] Created on: February 27, 2024 Stiven Cook : 1980 Sex: Male Author Organization [place] [facility] Address [address] [place] [address] Phone Care Team Providers Care Natural Resources Extension Educator Name Role Phone Andi Spivey DO Primary Care Provider [phone] [place] [facility], Unavailable [phone]
--- OUTSIDE RECORDS SUMMARY | 2024-02-27 18:10 | XMS_ITS ---
Author Organization [place] [facility] Address [address] [place] [address] Phone Care Team Providers Care Foundry Process Engineer Name Role Phone Spivey Andi IVERSON Primary Care Provider [phone] [place] [facility] Un[facility] [phone] Plan of Treatment Future Appointments Date Time Location Provi shara Procedure 03/03/2024 10:00AM [facility] Kenia Man MD Last Documented On 4 2:07PM ; [facility] Assessments Includes: Assessments for all patient [...] Location Service Date Treat Fracture Radius/Ulna (Right) 96924 Unsp fracture of the lower end of right radius, init Precious Giles PA-C [facility] - Inpatient 02/15/2024 Last Documented On 4 7:21AM ; [facility] Medical History Includes: Medical History in [...] Subscriber Relationship Effect hossein Dates 1 - [facility] [id number] Stiven Cook Se lf Clinical Notes Includes: Signed Clinical Notes starting from 02/26/2022 No Clinical Notes Recorded
--- OUTSIDE RECORDS SUMMARY | 2024-02-27 18:13 | XMS_ITS ---
Author Organization [facility] Address [address] [place] [address] Phone Care Team Providers Care Quality Director Name Role Phone Spivey Andi IVERSON Primary Care Provider [phone] [facility] Un[facility] [phone] Plan of Treatment Future Appointments Date Time Location Provi shara Procedure 03/03/2024 10:00AM [facility] Kenia Man MD Last Documented On 4 2:07PM ; [facility] Assessments Includes: Assessments for all patient [...] Location Service Date Treat Fracture Radius/Ulna (Right) 10901 Unsp fracture of the lower end of right radius, init Precious Giles PA-C [facility] - Inpatient 02/15/2024 Last Documented On 4 7:21AM ; [facility] Medical History Includes: Medical History in [...] Subscriber Relationship Effect hossein Dates 1 - [facility] [id number] Stiven Cook Se lf Clinical Notes Includes: Signed Clinical Notes starting from 02/26/2022 No Clinical Notes Recorded
--- OUTSIDE RECORDS SUMMARY | 2024-02-27 18:13 | XMS_ITS ---
Care Plan - [place] [facility] Created on: February 27, 2024 Stiven Cook : 1980 Sex: Male Author Organization [place] [facility] Address [address] [place] [address] Phone Care Team Providers Care Precision Machining Instructor Name Role Phone Andi Spivey DO Primary Care Provider [phone] [place] [facility], Unavailable [phone]
== END 2024-02-25 23:34 | disposition home or self-care (01) ==
PROVIDERS: Emergency Provider Emergency Medicine
DX: S52.502A Unspecified fracture of the lower end of left radius, initial encounter for closed fracture (principal); M25.532 Pain in left wrist; W00.0XXA Fall on same level due to ice and snow, initial encounter; Y93.89 Activity, other specified; Y92.096 Garden or yard of other non-institutional residence as the place of occurrence of the external cause; Y99.8 Other external cause status
CPT/HCPCS: 73110; 73130; 99283; 99284

== ENCOUNTER 2024-02-27 08:27 | Outpatient (AMB) | payer OTHER, SELFPAY ==
--- NOTE | 2024-02-27 08:29 | MHC.OFFVIS ---
Vital Signs 02/27/24 08:30 Height 5 ft 8 in Weight 260 lb BMI 39.5 Intake Visit Reasons: FC - Right Distal Radius Fracture 02/19/24 Intake Note: Stiven is a 43 year old right hand dominant male who presents today for a fracture care appointment with complaints of left wrist pain. Patient reports that on 02/19/24 he slipped and fell down the stairs and used his left hand to catch his fall. He developed pain swelling and bruising at site of injury. on 02/25/24 he was going to the mailbox when he slipped on ice and fell again on his left side. Placed in Sugar tong splint in emergency room. Patient currently reports that he is having severe pain and has concerns of numbness and tingling. He is taking Ibuprofen and Tylenol with no releif. He explains that he is taking it every hour because he doesn't know what else to do for relief. Reports discontinuation of Sublocade over 6 months ago Allergies sulfamethoxazole [From BACTRIM] Allergy (Unknown, Verified 02/25/24 19:47) HIVES trimethoprim [From BACTRIM] Allergy (Unknown, Verified 02/25/24 19:47) HIVES seafood Allergy (Verified 02/25/24 19:47) Anaphylaxis HPI HPI FC - Right Distal Radius Fracture 02/19/24: Details: Stiven is a 43 year old right hand dominant man who presents for a right distal radius fracture, S/P repeat falls, DOI: 02/19/24 & 02/25/24. He was seen in the ED and placed in a Sugar-tong splint. He complains of severe constant pain, without relief. He reports taking Tylenol or Ibuprofen every hour with limited relief of his pain. He says this keeps him up at night. He also complains of a sharp severe pain in his forearm at times. He says he has a Hx of a prior wrist fracture, ankle fracture, and finger fractures in the past. He says this hurts him more than any previous fracture he has experienced. He is also concerned about numbness & tingling in his fingers. This was not present prior to his fall, and is occasional. He has a Hx of ETOH abuse and is on Sublocade injections. He says he stopped drinking, and stopped receiving his Sublocade injections ~6 months ago. His verified his story. He was noted in the ED note from 02/25/24 to have asked for a refill of pain medication, which was denied. 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 [facility] Social History (Updated 02/27/24 @ 08:40 by Cindy Lam CMA) Substance Use Type: Marijuana Current occupational status: unemployed Review of Systems Const All systems reviewed & are unremarkable except as noted in HPI and below Physical Exam Vital Signs: BMI result Body Mass Index 39.5 Const General: cooperative, healthy appearing and no acute distress Orientation/consciousness: patient oriented x3 HEENT Head: Yes normocephalic and Yes atraumatic Eyes EOM: EOMs intact bilaterally Resp Effort & Inspection: normal respiratory effort and able to speak in complete sentences Cardio Jugular venous distension: no JVD Skin General skin exam: turgor normal Rashes: no rashes Neuro General: patient oriented x3 Extrem Other: Evaluation of Right Upper Extremity: The patient is alert, oriented, and in no acute distress Neuro: Median, Ulnar, Radial nerves motor and sensory intact and sensation is normal to the tips of all digits Vascular: Cap refill brisk ROM: With encouragement, he can make a weak fist and extend all his digits Full elbow ROM Skin: No lacerations or abrasions. General: No Erythema or evidence of infection. Mild-moderate swelling, & resolving ecchymosis on the volar forearm Most tender over the distal radius Radiographs: 3 views of the right wrist were taken and viewed by me today in clinic. They show a transverse distal radius fracture, comminuted, intra-articular, minimally-displaced, with a longitudinal component extending into the lunate facet. He is at neutral on the lateral view with some dorsal comminution. There is also a possible small dorsal avulsion fracture on the triquetrum. There may also be a possible ulnar styloid fracture, which may be old. Psych Appearance: grossly normal Affect: normal affect Attitude: cooperative Office Procedures AMB Fracture Care Details: Fracture care 83763 Fracture Billing Code: Fracture Billing Code Assessment & Plan Assessment & Plan (1) Distal radius fracture, right: Code(s): S52.501A - Unspecified fracture of the lower end of right radius, initial encounter for closed fracture Category: Medical Plan Assessment & Plan: 1. Right distal radius fracture, comminuted, intra-articular, & minimally-displaced From a fall, S/P 02/19/24 Repeat fall: 02/25/24 I educated her about this condition I discussed operative and non-operative treatment options We will manage this conservatively, and he is in agreement He was placed in a short arm cast to be worn for the next 3 weeks I discussed activity modifications, he is to lift nothing heavier than a cellphone for the next 4 weeks He should keep his wrist elevated at or above heart level when at rest He will perform gentle finger ROM exercises at home, and I explained the benefits of finger motion on improving his swelling 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 He was given a note for work to remain on light duty, with a 2lb weight limit for the next 4 weeks. Due to his complains of pain, I ordered #10 Vicodin 5-325mg, to be taken once daily, primarily at night to allow for sleeping. He is not to be prescribed any further pain medication, and the patient is in agreement. He has a Hx of substance abuse & prescription opioid use and was on Suboxone last summer. He says this was primarily ETOH related. He will follow up in 4 weeks with X-rays, 3V R wrist, OOP Scribed for Geeta Thomas MD by Raheem Hall, medical pathologist, on 02/27/24 at 8:55 AM, EST. Orders: Orders XR wrist RT min 3V Today M25.531 - Pain in right wrist Medications: New hydrocodone-acetaminophen 5-325 mg Partial Fill upon patient request. 1 tab PO Q8H PRN 10 tabs 0RF pain Coding Level of Care Code New Pt Level 4 (69105) Diagnoses Distal radius fracture, right S52.501A CPT Codes Fracture Care - Fracture Billing Code: Fracture Billing Code ([id number])
[2024-02-27 08:30] VITALS: BMI 39.5
--- OUTSIDE RECORDS SUMMARY | 2024-02-27 23:03 | XMS_ITS ---
Author Organization [place] [facility] Address [address] [place] [address] Phone Care Team Providers Care Wardrobe Coordinator Name Role Phone Spivey Andi IVERSON Primary Care Provider [phone] [facility] Un[facility] [phone] Plan of Treatment Future Appointments Date Time Location Provi shara Procedure 03/03/2024 10:00AM [facility] Kenia aMn MD Last Documented On 4 2:07PM ; [facility] Assessments Includes: Assessments for [...] Location Service Date Treat Fracture Radius/Ulna (Right) 87215 Unsp fracture of the lower end of right radius, init Precious Giles PA-C [facility] - Inpatient 02/15/2024 Last Documented On 4 7:21AM ; [facility] Medical History Includes: Medical [...] Subscriber Relationship Effect hossein Dates 1 - [facility] [id number] Stiven Cook Se lf Clinical Notes Includes: Signed Clinical Notes starting from 02/26/2022 No Clinical Notes Recorded
--- OUTSIDE RECORDS SUMMARY | 2024-02-27 23:03 | XMS_ITS ---
Care Plan - [place] [facility] Created on: February 27, 2024 Stiven Cook : 1980 Sex: Male Author Organization [place] [facility] Address [address] [place] [address] Phone Care Team Providers Care Bag Press Operator Name Role Phone Andi Spivey DO Primary Care Provider [phone] [place] [facility], Unavailable [phone]
== END 2024-02-27 09:20 | disposition home or self-care (01) ==
PROVIDERS: Visit Provider Orthopaedic Surgery
DX: S52.501A Unspecified fracture of the lower end of right radius, initial encounter for closed fracture (principal)
CPT/HCPCS: 25600; 99204

== ENCOUNTER 2024-02-27 09:14 | Outpatient (REF) | payer OTHER, SELFPAY ==
--- NOTE | ~2024-02-27 | XR_ITS ---
EXAMINATION: XR WRIST RIGHT CLINICAL INFORMATION: Pain in right wrist M25.531. COMPARISON: XR Right hand wrist 02/25/2024 TECHNIQUE: PA, lateral, and oblique views of the right wrist. FINDINGS: Comminuted distal radial fracture, with ill-defined fracture planes. There is a displaced osseous fragment seen dorsally, displacement appearing more prominent as compared to prior radiographs, which in part could be related to difference in positioning/technique. Persistent small ossification adjacent to the ulna styloid process. No new acute fracture is seen. Carpal row alignment is maintained. XR/XR wrist RT min 3V IMPRESSION: Healing distal radial fracture. Ossific fragment dorsally, appears slightly more displaced as compared to previous, which could be related to difference in positioning/technique versus increased displacement. Study is assigned/presented to me for interpretation on Apr 04, 2024 Electronically signed by: Sawyer Mata MD 04/04/2024 01:[address] [facility]
--- OUTSIDE RECORDS SUMMARY | 2024-02-28 09:20 | XMS_ITS ---
Author Organization [facility] Address [address] [place] [address] Phone Care Team Providers Care System Support Technician Name Role Phone Spivey Andi IVERSON Primary Care Provider [phone] [facility] Un[facility] [phone] Plan of Treatment Future Appointments Date Time Location Provi shara Procedure 03/03/2024 10:00AM [facility]ia Man MD Last Documented On 4 2:07PM ; [facility] Assessments Includes: Assessments for all patient encounters No Assessments Recorded Medical Equipment - Implanted Devices Includes: Current and historical Devices No Medical Equipment Recorded Medications Administered Includes: Administered Medications in patient's chart No Administered Medications Recorded Results Includes: Results from 02/27/2023 through 02/28/2024 No Results Recorded For Specified Dates History of Present Illness History of Present Illness not supported for this document type No History of Present Illness Recorded Social History No Social History Recorded - Smoking Status Unknown Procedures and Surgical History Includes: Procedures from 02/27/2023 through 02/28/2024 Procedures Code Diagnosis Performing Provider Service Location Service Date Treat Fracture Radius/Ulna (Right) 41576 Unsp fracture of the lower end of right radius, init Precious Giles PA-C [facility] - Inpatient 02/15/2024 Last Documented On 4 7:21AM ; [facility] Medical History Includes: Medical History in patient's [...] Effect hossein Dates 1 - [facility] [phone] Stiven Cook Se lf Clinical Notes Includes: Signed Clinical Notes starting from 02/26/2022 No Clinical Notes Recorded
--- OUTSIDE RECORDS SUMMARY | 2024-02-28 09:20 | XMS_ITS ---
Care Plan - [place] [facility] Created on: February 28, 2024 Stiven Cook : 1980 Sex: Male Author Organization [place] [facility] Address [address] [place] [address] Phone Care Team Providers Care Chief Cruiser Name Role Phone Andi Spivey DO Primary Care Provider [phone] [place] [facility], Unavailable [phone]
== END 2024-02-27 09:15 | disposition home or self-care (01) ==
LOC: HO.HOSX 09:14
PROVIDERS: Visit Provider Orthopaedic Surgery
DX: M25.531 Pain in right wrist (principal); S52.501D Unspecified fracture of the lower end of right radius, subsequent encounter for closed fracture with routine healing
CPT/HCPCS: 25600; 73110; 99202

== ENCOUNTER 2024-03-07 12:46 | Outpatient (AMB) | payer OTHER, SELFPAY ==
--- OUTSIDE RECORDS SUMMARY | 2024-03-07 12:48 | XMS_ITS | Clinical Summary ---
Author Organization [place] [facility] Address [address] [place] [address] Phone Care Team Providers Care Fish Hatchery Assistant Name Role Phone Allyssa IVERSONAndi Primary Care Provider [phone] [place] [facility], Unavailable [phone] Reason for Visit and Chief Complaint Procedure Plan of Treatment No Plan of Treatment Recorded Assessments Includes: Assessments from this encounter No Assessments Recorded Medical Equipment - Implanted Devices Includes: Current Devices No Medical Equipment Recorded Medications Administered Includes: Administered Medications from this encounter No Administered Medications Recorded Results Includes: Results discussed during this encounter No Results Recorded For Specified Dates History of Present Illness Includes: History of Present Illness from this encounter No History of Present Illness Recorded Social History No Social History Recorded - Smoking Status Unknown Medical History Includes: Medical History addressed during this encounter No Medical History Recorded Family History Includes: Family History addressed during this encounter No Family History Recorded Review of Systems Includes: Review of Systems from this encounter No Review of Systems Recorded Mental Status Includes: Mental Status from this encounter No Mental Status Recorded Functional Status Includes: Functional Status from this encounter No Functional Status Recorded Physical Exam Includes: Physical Exam from this encounter No Physical Exam Recorded Insurance Includes: Active Insurance Policies Plan Name Member ID Group # Subscriber Relationship Effect hossein Dates 1 - [facility] [id number] Stiven Cook Se lf Clinical Notes Includes: Clinical Notes from this encounter No Clinical Notes Recorded
--- OUTSIDE RECORDS SUMMARY | 2024-03-07 12:48 | XMS_ITS ---
Care Plan - [place] [facility] Created on: March 07, 2024 Stiven Cook : 1980 Sex: Male Author Organization [place] [facility] Address [address] [place] [address] Phone Care Team Providers Care Resident Care Aide Name Role Phone Andi Spivey DO Primary Care Provider [phone] [place] [facility], Unavailable [phone]
--- NOTE | 2024-03-07 12:55 | MHC.OFFVIS ---
Intake Visit Reasons: OV- Cast change, RT Distal Radius Fracture 02/19/24 Intake Note: Stiven is a 43 year old Right hand dominant male who presents today for a cast change of the right wrist. He is s/p Distal Radius fx 02/19/24. Patient reports that the cast is loose and sliding down.He has continued and increasing pain of the right wrist. He reports that he is taking pain medication at night but has run out of it. He is taking more ibuprofen than directed but he does not know what else to do for his pain. Allergies sulfamethoxazole [From BACTRIM] Allergy (Unknown, Verified 02/25/24 19:47) HIVES trimethoprim [From BACTRIM] Allergy (Unknown, Verified 02/25/24 19:47) HIVES seafood Allergy (Verified 02/25/24 19:47) Anaphylaxis Medication List - Last Reconciled 03/07/24 by Dacia Lee PA-C clonazepam 1 mg PO BID dextroamphetamine-amphetamine 30 mg ER (Adderall XR) 1 cap PO BID escitalopram oxalate 10 mg PO DAILY gabapentin 800 mg PO TID hydrocodone-acetaminophen 5-325 mg 1 tab PO Q8H PRN oxycodone 5 mg PO Q6H PRN HPI HPI OV- Cast change, RT Distal Radius Fracture 02/19/24: Details: 43-year-old gentleman returns to the office today for a cast change right distal radius fracture. He states the cast feels loose and there is movement around the wrist. Also complains of increased discomfort. [facility] Social History (Updated 02/27/24 @ 08:40 by Cindy Lam [facility]) Substance Use Type: Marijuana Current occupational status: unemployed Review of Systems Const All systems reviewed & are unremarkable except as noted in HPI and below Physical Exam Extrem Other: Right wrist skin is intact. Mild tenderness over the fracture site. He can make a fist and extend all digits. Neurovascularly intact. Office Procedures Casting/Splints 51099-Cszu/Wrist Cast Application Procedure code (CPT) selection complete Results Reviewed Results Reviewed: X-rays of the right wrist obtained in the office today show redemonstration of intra-articular distal radius fracture without displacement or collapse. Assessment & Plan Assessment & Plan (1) Distal radius fracture, right: Code(s): S52.501A - Unspecified fracture of the lower end of right radius, initial encounter for closed fracture Category: Medical Qualifiers: Encounter type: subsequent encounter Fracture type: closed Plan: Patient was placed in a short-arm cast today. No lifting more than a cell phone. Reassurance given that there is no change in imaging since last visit. He will return for his regular scheduled appointment on March 25. Cast off with new x-rays. Orders: Orders XR wrist RT min 3V Today M25.539 - Pain in unspecified wrist Coding Level of Care Code Global (27535) Diagnoses Distal radius fracture, right S52.501A Encounter type: subsequent encounter Fracture type: closed CPT Codes Casting - CPT: 36684-Rmog/Wrist Cast Application ([id number])
== END 2024-03-07 13:17 | disposition home or self-care (01) ==
PROVIDERS: Visit Provider Physician Assistant
DX: S52.501A Unspecified fracture of the lower end of right radius, initial encounter for closed fracture (principal)
CPT/HCPCS: 29085; 99024

== ENCOUNTER 2024-03-07 12:46 | Outpatient (REF) | payer OTHER, SELFPAY ==
--- OUTSIDE RECORDS SUMMARY | 2024-03-07 12:56 | XMS_ITS ---
Care Plan - [place] [facility] Created on: March 07, 2024 Stiven Cook : 1980 Sex: Male Author Organization [place] [facility] Address [address] [place] [address] Phone Care Team Providers Care Insole Stiffener Name Role Phone Andi Spivey DO Primary Care Provider [phone] [place] [facility], Unavailable [phone]
--- OUTSIDE RECORDS SUMMARY | 2024-03-07 12:56 | XMS_ITS ---
Author Organization [facility] Address [address] [place] [address] Phone Care Team Providers Care Specialized Developer Name Role Phone Andi Spivey DO Mariel Primary Care Provider [phone] [place] [facility] Un[facility] [phone] Plan of Treatment No Plan of Treatment Recorded Assessments Includes: Assessments for all patient encounters No Assessments Recorded Medical Equipment - Implanted Devices Includes: Current and historical Devices No Medical Equipment Recorded Medications Administered Includes: Administered Medications in patient's chart No Administered Medications Recorded Results Includes: Results from 03/07/2023 through 03/07/2024 No Results Recorded For Specified Dates History of Present Illness History of Present Illness not supported for this document type No History of Present Illness Recorded Social History No Social History Recorded - Smoking Status Unknown Procedures and Surgical History Includes: Procedures from 03/07/2023 through 03/07/2024 Procedures Code Diagnosis Performing Provider Service Location Service Date Treat Fracture Radius/Ulna (Right) 72930 Unsp fracture of the lower end of right radius, init Precious Giles PA-C [facility] - Inpatient 02/15/2024 Last Documented On 4 7:21AM ; [place] [facility] History Includes: Medical History in [...] Subscriber Relationship Effect hossein Dates 1 - [facility] [id number] Stiven Cook Se lf Clinical Notes Includes: Signed Clinical Notes starting from 02/26/2022 No Clinical Notes Recorded
--- OUTSIDE RECORDS SUMMARY | 2024-03-07 12:56 | XMS_ITS | Clinical Summary ---
Author Organization [place] [facility] Address [address] [place] [address] Phone Care Team Providers Care Dot Net Developer Name Role Phone Allyssa IVERSONAndi Primary Care Provider [phone] [place] [facility], Unavailable [phone] Reason for Visit and Chief Complaint Procedure [...] Effect hossein Dates 1 - [facility] [id number] Stiven Cook Se lf Clinical Notes Includes: Clinical Notes from this encounter No Clinical Notes Recorded
== END 2024-03-07 12:47 | disposition home or self-care (01) ==
LOC: HO.HOSX 12:46
DX: S52.501A Unspecified fracture of the lower end of right radius, initial encounter for closed fracture (principal); M25.531 Pain in right wrist
CPT/HCPCS: 29085; 73110; 99212

== ENCOUNTER 2024-03-25 09:09 | Outpatient (REF) | payer OTHER, SELFPAY ==
--- NOTE | ~2024-03-25 | XR_ITS ---
EXAMINATION: XR WRIST, RIGHT CLINICAL INFORMATION: M25.531 - Pain in right wrist COMPARISON: Right wrist 03/07/2024 TECHNIQUE: PA, lateral, and oblique views of the right wrist. FINDINGS: A comminuted fractured distal radius with intra-articular extension but no displacement seen. There is a small bone fragment along the tip of the ulnar side process likely old fracture. Visualized carpal bones are normal. There is mild dorsal soft tissue swelling.. XR/XR wrist RT min 3V IMPRESSION: Comminuted fracture distal radius with intra-articular extension but no displacement. Mild dorsal wrist soft tissue swelling. No major change compared to previous exam 03/07/2024. Electronically signed by: Cheikh Reynaga MD 03/28/2024 07:30 AM LALITA
--- OUTSIDE RECORDS SUMMARY | 2024-03-26 09:15 | XMS_ITS ---
Care Plan - [place] [facility] Created on: March 26, 2024 Stiven Cook : 1980 Sex: Male Author Organization [facility] Address [address] [place] [address] Phone Care Team Providers Care Ict Systems Test Engineer Name Role Phone Andi Spivey DO Primary Care Provider [phone] [facility], Unavailable [phone]
--- OUTSIDE RECORDS SUMMARY | 2024-03-26 09:15 | XMS_ITS ---
Author Organization [facility] Address [address] [place] [address] Phone Care Team Providers Care Paste Plant Supervisor Name Role Phone Andi Spivey DO Mariel Primary Care Provider [phone] [facility] Un[facility] [phone] Plan of Treatment No Plan of Treatment Recorded Assessments Includes: Assessments for all patient encounters No Assessments Recorded Medical Equipment - Implanted Devices Includes: Current and historical Devices No Medical Equipment Recorded Medications Administered Includes: Administered Medications in patient's chart No Administered Medications Recorded Results Includes: Results from 03/26/2023 through 03/26/2024 No Results Recorded For Specified Dates History of Present Illness History of Present Illness not supported for this document type No History of Present Illness Recorded Social History No Social History Recorded - Smoking Status Unknown Procedures and Surgical History Includes: Procedures from 03/26/2023 through 03/26/2024 Procedures Code Diagnosis Performing Provider Service Location Service Date Treat Fracture Radius/Ulna (Right) 54889 Unsp fracture of the lower end of right radius, init Precious Giles PA-C [facility] - Inpatient 02/15/2024 Last Documented On 4 7:21AM ; [facility] Medical History Includes: Medical History in [...] Subscriber Relationship Effect hossein Dates 1 - [facility] [id number] Stiven Cook Se lf Clinical Notes Includes: Signed Clinical Notes starting from 02/26/2022 No Clinical Notes Recorded
--- OUTSIDE RECORDS SUMMARY | 2024-03-26 09:15 | XMS_ITS | Clinical Summary ---
Author Organization [place] [facility] Address [address] [place] [address] Phone Care Team Providers Care Ice Cream Freezer Name Role Phone Allyssa Andi IVERSON Primary Care Provider [phone] [place] [facility], Unavailable [phone] Reason for Visit and Chief Complaint Procedure [...] Subscriber Relationship Effect hossein Dates 1 - [facility] [id number] Stiven Cook Se lf Clinical Notes Includes: Clinical Notes from this encounter No Clinical Notes Recorded
== END 2024-03-25 09:10 | disposition home or self-care (01) ==
LOC: HO.HOSX 09:09
PROVIDERS: Visit Provider Orthopaedic Surgery
DX: M25.531 Pain in right wrist (principal); S52.571D Other intraarticular fracture of lower end of right radius, subsequent encounter for closed fracture with routine healing
CPT/HCPCS: 73110; 99212

== ENCOUNTER 2024-03-25 09:50 | Outpatient (AMB) | payer OTHER, SELFPAY ==
--- NOTE | 2024-03-25 10:01 | MHC.OFFVIS ---
Vital Signs 03/25/24 10:04 Height 5 ft 8 in Weight 260 lb BMI 39.5 Intake Visit Reasons: O/V Right Distal Radius Fracture 02/19/24-w/xray Intake Note: Stiven 43 year old right hand dominant man who presents for his follow up visit for his right distal radius fracture, DOI: 02/19/24 & 02/25/24. Last seen with Brenda Bowden on 03/07/24 for a cast change. Cast removed in office and xrays updated. States he has soreness due to being in cast. Allergies sulfamethoxazole [From BACTRIM] Allergy (Unknown, Verified 03/25/24 10:05) HIVES trimethoprim [From BACTRIM] Allergy (Unknown, Verified 03/25/24 10:05) HIVES seafood Allergy (Verified 03/25/24 10:05) Anaphylaxis HPI HPI O/V Right Distal Radius Fracture 02/19/24-w/xray: Details: Stiven is a 43 year old right hand dominant man who returns for his right distal radius fracture, S/P repeat falls, DOI: 02/19/24 & 02/25/24. He was seen fr a cast change on 03/07/24 by JEANETTE Bowden He complains of some pain & soreness in his wrist, which he attributes to wearing a cast. Otherwise he is happy with his healing progress. He has a Hx of ETOH abuse and is on Sublocade injections. He says he stopped drinking, and stopped receiving his Sublocade injections ~6 months ago. His verified his story. He was noted in the ED note from 02/25/24 to have asked for a refill of pain medication, which was denied. 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 [facility] Social History Substance Use Type: Marijuana Current occupational status: unemployed Review of Systems Const All systems reviewed & are unremarkable except as noted in HPI and below Physical Exam Vital Signs: BMI result Body Mass Index 39.5 Const General: no acute distress and alert Orientation/consciousness: patient oriented x3 Neuro General: patient oriented x3 Extrem Other: Evaluation of Right Upper Extremity: The patient is alert, oriented, and in no acute distress Neuro: Median, Ulnar, Radial nerves motor and sensory intact and sensation is normal to the tips of all digits Vascular: Cap refill brisk ROM: With encouragement, he can make a fist and extend all his digits Full elbow ROM Full pronation Supination ~60 degrees Extension ~10 degrees Flexion ~20 degrees General: No Erythema or evidence of infection. No tenderness over the fracture site DRUj stable on exam Radiographs: 3 views of the right wrist were taken and viewed by me today in clinic. They show a transverse distal radius fracture, comminuted, intra-articular, minimally-displaced, with a longitudinal component extending into the lunate facet. He is at neutral on the lateral view with some dorsal comminution. There is also a possible small dorsal avulsion fracture on the triquetrum. There is satisfactory fracture alignment & good evidence of interval bony healing. There may also be a possible ulnar styloid fracture, which may be old. Psych Appearance: grossly normal Affect: normal affect Attitude: cooperative Assessment & Plan Assessment & Plan (1) Distal radius fracture, right: Code(s): S52.501A - Unspecified fracture of the lower end of right radius, initial encounter for closed fracture Category: Medical Qualifiers: Encounter type: subsequent encounter Fracture type: closed Plan Assessment & Plan: 1. Right distal radius fracture, comminuted, intra-articular, & minimally-displaced From a fall, S/P 02/19/24 Repeat fall: 02/25/24 I educated him about this condition We discontinued his cast today. He was fitted for a velcro wrist splint to be worn with daily activities out of the house for the next 2 weeks. He will remove this when at home at rest. I discussed activity modifications, he is to lift lightweight objects with his right hand, and slowly increase to medium weight objects over the next 4 weeks He should work on finger & wrist ROM exercises out of his splint at home. I ordered OT hand therapy to work on wrist ROM & strength. 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 Will discuss work restrictions at his next appointment, specifically returning to full duty. He should remain on light duty with a 2lb weight limit until his next appointment. He has a Hx of substance abuse & prescription opioid use and was on Suboxone last summer. He says this was primarily ETOH related. He will follow up in 4 weeks for [id number] check. No radiographs are necessary unless he falls again or complaints of pain. Scribed for Geeta Thomas MD by Raheem Hall, durable medical equipment repairer, on 03/25/24 at 10:15 AM, EST. Orders: Orders XR wrist RT min 3V Today M25.531 - Pain in right wrist OT Evaluation and Treatment Today S52.501A - Unspecified fracture of the lower end of right radius, initial encounter for closed fracture Coding Level of Care Code Global (69803) Diagnoses Distal radius fracture, right S52.501A Encounter type: subsequent encounter Fracture type: closed
[2024-03-25 10:04] VITALS: BMI 39.5
--- OUTSIDE RECORDS SUMMARY | 2024-03-25 10:18 | XMS_ITS ---
Care Plan - [facility] Created on: March 25, 2024 Stiven Cook : 1980 Sex: Male Author Organization [facility] Address [address] [place] [address] Phone Care Team Providers Care Illusionist Name Role Phone Andi Spivey DO Primary Care Provider [phone] [facility], Unavailable [phone]
--- OUTSIDE RECORDS SUMMARY | 2024-03-25 10:18 | XMS_ITS | Clinical Summary ---
Author Organization [place] [facility] Address [address] [place] [address] Phone Care Team Providers Care Staking Technician Name Role Phone Allyssa IVERSONAndi Primary Care Provider [phone] [place] [facility], Unavailable [phone] Reason for Visit and Chief Complaint Procedure [...] Effect hossein Dates 1 - [facility] [phone] Stiven Cook Se lf Clinical Notes Includes: Clinical Notes from this encounter No Clinical Notes Recorded
--- OUTSIDE RECORDS SUMMARY | 2024-03-25 10:18 | XMS_ITS ---
Author Organization [facility] Address [address] [place] [address] Phone Care Team Providers Care Purification Director Name Role Phone Andi Spivey DO Mariel Primary Care Provider [phone] [facility] Un[facility] [phone] Plan of Treatment No Plan of Treatment Recorded Assessments Includes: Assessments for all patient encounters No Assessments Recorded Medical Equipment - Implanted Devices Includes: Current and historical Devices No Medical Equipment Recorded Medications Administered Includes: Administered Medications in patient's chart No Administered Medications Recorded Results Includes: Results from 03/25/2023 through 03/25/2024 No Results Recorded For Specified Dates History of Present Illness History of Present Illness not supported for this document type No History of Present Illness Recorded Social History No Social History Recorded - Smoking Status Unknown Procedures and Surgical History Includes: Procedures from 03/25/2023 through 03/25/2024 Procedures Code Diagnosis Performing Provider Service Location Service Date Treat Fracture Radius/Ulna (Right) 55351 Unsp fracture of the lower end of right radius, init Precious Giles PA-C [facility] - Inpatient 02/15/2024 Last Documented On 4 7:21AM ; [facility] Medical History Includes: Medical History in [...] Subscriber Relationship Effect hossein Dates 1 - [facility] [phone] Stiven Cook Se lf Clinical Notes Includes: Signed Clinical Notes starting from 02/26/2022 No Clinical Notes Recorded
== END 2024-03-25 10:28 | disposition home or self-care (01) ==
PROVIDERS: Visit Provider Orthopaedic Surgery
DX: S52.501A Unspecified fracture of the lower end of right radius, initial encounter for closed fracture (principal)
CPT/HCPCS: 99024